=== PATIENT | female | born 1995 | race Caucasian/White ===

== ENCOUNTER → 2021-02-23 09:00 | Outpatient (CLI) | payer OTHER | END | disposition home or self-care (01) | LOC: PPH VACUNA 09:00 | PROVIDERS: ATTEND Emergency Medicine Pediatric Emergency Medicine | DX: Z23 Encounter for immunization (principal) ==

== ENCOUNTER 2024-02-17 19:43 | Emergency (ER) | payer OTHER ==
[~2024-02-17] VITALS: Ht 170.2 cm; Wt 57.6 kg
[2024-02-17] MEDS ORDERED: VITATRUE COMBO1 EACH PO (20:52)
[2024-02-17 21:41] LABS: HEMATOCRIT 37.5 % (36.0-45.00); HEMOGLOBIN 12.5 g/dL (12.0-15.00); MEAN CELL VOLUME 83.2 fL (80.00-100.00); MEAN CORPUSCULAR HEMOGLOBIN 27.7 pg (27.00-32.0); MEAN CORPUSCULAR HGB CONC 33.2 g/dl (32.0-36.0); PLATELET COUNT 239 K/uL (150-450); RED BLOOD COUNT 4.51 M/uL (4.00-6.00); RED CELL DISTRIBUTION WIDTH 13.9 % (11.5-14.5)
== END 2024-02-18 00:01 | disposition home or self-care (01) ==
LOC: ER 19:46
PROVIDERS: General Practice
DX: O20.8 Other hemorrhage in early pregnancy (principal); Z3A.01 Less than 8 weeks gestation of pregnancy

== ENCOUNTER 2024-06-01 09:52 | Outpatient (CLI) | payer OTHER ==
[~2024-06-01 09:52] MED LIST: VITATRUE COMBO1 EACH PO
== END 2024-06-01 09:53 | disposition home or self-care (01) ==
LOC: PRENATAL 09:52
PROVIDERS: ATTEND Obstetrics & Gynecology Maternal & Fetal Medicine
DX: O44.00 Complete placenta previa NOS or without hemorrhage, unspecified trimester (principal); Z3A.21 21 weeks gestation of pregnancy

== ENCOUNTER → 2024-08-23 13:57 | Outpatient (CLI) | payer OTHER | END | disposition home or self-care (01) | LOC: PRENATAL 13:57 | PROVIDERS: ATTEND Obstetrics & Gynecology Maternal & Fetal Medicine | DX: O26.849 Uterine size-date discrepancy, unspecified trimester (principal); O36.8199 Decreased fetal movements, unspecified trimester, other fetus; Z3A.34 34 weeks gestation of pregnancy ==

== ENCOUNTER 2024-12-06 08:41 | Emergency (ER) | payer OTHER ==
[~2024-12-06] VITALS: Ht 170.2 cm; Wt 66.2 kg
[2024-12-06] MEDS ORDERED: DEXAMETHASONE SODIUM PHOSPHATE 4 MG/ML VIAL IV ONE (09:30)
[2024-12-06] MEDS ORDERED: ORPHENADRINE CITRATE 30 MG/ML AMPUL IM ONE (09:30)
[2024-12-06] MEDS ORDERED: KETOROLAC TROMETHAMINE 15 MG VIAL IU ONE (09:30)
[2024-12-06] MEDS ORDERED: ACETAMINOPHEN 500 MG GEL..CAP PO ONE ×2 (09:30→09:33)
[2024-12-06] MEDS ORDERED: KETOROLAC TROMETHAMINE 30 MG VIAL ONE (09:32)
[2024-12-06] MEDS ORDERED: ORPHENADRINE CITRATE 30 MG/ML AMPUL ONE (09:33)
[2024-12-06] MEDS ORDERED: DEXAMETHASONE SODIUM PHOSPHATE 4 MG/ML VIAL ONE (09:33)
[2024-12-06 09:53] LABS: BASO % 0.4 % (0.1-1.2); EOS # 0.08 (0.04-0.54); EOS % 1.5 % (0.7-7.0); LYMPH # 1.57 (1.18-3.74); LYMPH % 30.0 % (19.3-53.1); MEAN PLATELET VOLUME 8.90 fl (9.4-12.4); MONO # 0.32 (0.24-0.82); MONO % 6.1 % (4.7-12.5); NEUT # 3.23 (1.56-6.13); NEUT % 61.6 % (34.0-71.1); RED CELL DISTRIBUTION WIDTH 13.7 % (11.6-14.4)
[2024-12-06 10:17] LABS: ABG PH 7.390 (7.35-7.45); ABG PO2 183.2 mmHg (80-100); BICARBONATE 21.9 mmol/l (23-25)
[2024-12-06 10:20] LABS: INR 1.0
[2024-12-06 10:23] LABS: o2 21 %
[2024-12-06 10:26] LABS: ALT/SGPT 52 U/L (12-78); AST/SGOT 20 U/L (15-37); BILIRUBIN TOTAL 0.39 mg/dL (0.3-1.2); BUN CREA RATIO 23 (7.0-25.0); CREATININE SERUM 0.86 mg/dL (0.55-1.02); GFR 77.48; GLOBULINA 3.4 G/DL (2.4-3.5); GLUCOSE FASTING 79 mg/dL (65-100); OSMOLALITY SERUM 281 MOSM/KG (275-295)
[2024-12-06 10:27] LABS: HCG QUANTITATIVE < 1 mUI/mL (1-3)
[2024-12-06 12:12] LABS: URINE APPEARANCE Clear; URINE BILIRRUBIN Negative (NEGATIVE); URINE BLOOD Negative; URINE COLOR Yellow; URINE GLUCOSE Negative (NEGATIVE); URINE KETONE Negative (NEGATIVE); URINE LEUKOCYTE Negative; URINE NITRATE Negative; URINE PROTEIN Negative (NEGATIVE); URINE UROBILINOGEN 0.2 E.U./dl
[2024-12-06 12:15] LABS: URINE BACTERIA 87.5 uL (0.0-1933); URINE EPITHELIAL CELLS 19.0 uL (0.0-38.8); URINE WBC 9.3 uL (0.0-23.2)
[2024-12-06 12:32] LABS: URINE CAST 0.29 uL (0.0-1.40); URINE RBC 1.7 uL (0.0-20.8)
[2024-12-06] MEDS ORDERED: MORPHINE SULFATE 2 MG/ML SYRINGE IV ONE (13:15)
[2024-12-06] MEDS ORDERED: PEPCID AC20 MG PO (14:51)
[2024-12-06] MEDS ORDERED: IBU600 MG PO (14:51)
[2024-12-06] MEDS ORDERED: FEXMID7.5 MG PO (14:51)
== END 2024-12-06 15:31 | disposition home or self-care (01) ==
LOC: ER 08:41
PROVIDERS: General Practice
DX: M62.838 Other muscle spasm (principal); R55 Syncope and collapse